=== PATIENT | female | born 2000 ===

== ENCOUNTER 2022-01-14 20:28 | Emergency (ER) | payer OTHER ==
[2022-01-15] MEDS ORDERED: KETOROLAC 30 MG/1 ML INJ IM ONE (03:31)
[2022-01-15] MEDS ORDERED: ONDANSETRON 4 MG ODT TAB PO ONE (03:31)
[2022-01-15] MEDS ORDERED: BUTALB/ACETAMINOPHEN/CAFFEINE TAB PO ONE (03:31)
[2022-01-15 04:26] LABS: Basophils # (Auto) 0.2 K/mm3 (0.0-0.1); Basophils % (Auto) 2.1 % (0.0-1.8); Eosinophils # (Auto) 0.1 K/mm3 (0.0-0.4); Eosinophils % (Auto) 1.2 % (0.0-4.3); Hematocrit 39.8 % (30.3-42.9); Hemoglobin 13.3 gm/dl (10.1-14.3); Lymphocytes # (Auto) 2.3 K/mm3 (1.2-5.4); Lymphocytes % (Auto) 29.2 % (13.4-35.0); Mean Corpuscular HGB Conc 33 % (30-34); Mean Corpuscular Volume 94 fl (79-97); Monocytes # (Auto) 0.6 K/mm3 (0.0-0.8); Monocytes % (Auto) 7.4 % (0.0-7.3); Platelet Count 201 K/mm3 (140-440); Red Blood Count 4.24 M/mm3 (3.65-5.03); Red Cell Distribution Width 14.2 % (13.2-15.2)
[2022-01-15 04:40] LABS: Alanine Aminotransferase 9 units/L (7-56); Albumin 4.4 g/dL (3.9-5); Blood Urea Nitrogen 14 mg/dL (7-17); Calcium 9.5 mg/dL (8.4-10.2); Hemolysis Index 4
[2022-01-15 04:43] LABS: BUN/Creatinine Ratio 28
--- NOTE | 2022-01-15 04:58 | Cat Scan Report ---
CT HEAD WITHOUT CONTRAST INDICATION / CLINICAL INFORMATION: HEADACHE, H/O BRAIN TUMOR. TECHNIQUE: All CT scans at this location are performed using CT dose reduction for ALARA by means of automated exposure control. COMPARISON: None available. FINDINGS: BRAIN PARENCHYMA: No acute intracranial hemorrhage. No evidence of recent infarct. No mass effect or midline shift. Generalized atrophy is greater than expected for the patient's age changes most notabl e along the temporal lobes. VENTRICULAR SYSTEM/EXTRA-AXIAL SPACES: Ventricles are normal for age. No extra-axial fluid collection . ORBITS: Normal as visualized. SKELETAL SYSTEM/SOFT TISSUES: Normal bones and soft tissues. PARANASAL SINUSES/MASTOID AIR CELLS: No significant abnormality. ADDITIONAL FINDINGS: None. IMPRESSION: 1. No acute intracranial abnormality. 2. Additional findings as above. Signer Name: Jhonny Ferreira MD Signed: 01/15/2022 4:54 AM Workstation Name: [id number]
--- NOTE | 2022-01-15 05:14 | Emergency Department Report ---
ED Headache HPI - General Chief Complaint: Headache Stated Complaint: BAD HEADACHE/VOMITING - History of Present Illness Initial Comments: Patient is a nulliparous 21-year-old female with a history of brain tumor as a 10-year-old and which resolved with treatment presents to the ED with complaint of acute onset persistent right temporal headache that radiates to the right parietal scalp for the last 2 days. Patient states that she has been taking ove i-bvw-mfbfacu medications with mild relief. Patient states that in the last 12 hours, the pain has been constant and persistent with nausea and vomiting. Patient denies photophobia, blurry vision, neck pain, chest pain, shortness of breath, nasal and sinus congestion, sore throat, traumatic injury or fall, fever, chills, numbness and tingling or weakness of upper and lower extremities bilaterally. Quality: severe, pressure, sharp Head Injury Location: frontal, temporal Recent Head Trauma: no recent headache/trauma Modifying Factors: improves with: other (h/o benign brain tumor as a child of 10 yo) Associated Symptoms: denies symptoms, nausea/vomiting. denies: confusion, fatigue, facial pain, fever/chills, flushing, loss of consciousness, nasal congestion, nasal drainage, seizures, vision changes, weakness Allergies/Adverse Reactions: Allergies No Known Allergies Allergy (Unverified 01/14/22 21:18) Home Medications: Ambulatory Orders Butalb/Acetamin/Caff 50-325-40 [Fioricet 50-325-40] 1 - 2 tab PO Q6HR PRN #15 tab 01/15/22 Ibuprofen [Motrin] 600 mg PO Q8H PRN #30 tablet 01/15/22 Ondansetron [Zofran Odt] 4 mg PO Q8HR PRN #20 tab.rapdis 01/15/22 ED Review of Systems ROS: Stated complaint: BAD HEADACHE/VOMITING Other details as noted in HPI Constitutional: denies: chills, fever Eyes: denies: eye pain, eye discharge, vision change ENT: denies: ear pain, throat pain Respiratory: denies: cough, shortness of breath, wheezing Cardiovascular: denies: chest pain, palpitations Endocrine: no symptoms reported Gastrointestinal: nausea. denies: abdominal pain, vomiting, diarrhea Genitourinary: denies: urgency, dysuria, discharge Musculoskeletal: denies: back pain, joint swelling, arthralgia Skin: denies: rash, lesions Neurological: headache. 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 child, resolved with chemotherapy - Medications Home Medications: Home Medications Medication Instructions Recorded Confirmed Last Taken Type Butalb/Acetamin/Caff 50-325-40 1 - 2 tab PO Q6HR PRN #15 tab 01/15/22 Unknown Rx [Fioricet 50-325-40] Ibuprofen [Motrin] 600 mg PO Q8H PRN #30 tablet 01/15/22 Unknown Rx Ondansetron [Zofran Odt] 4 mg PO Q8HR PRN #20 tab.rapdis 01/15/22 Unknown Rx ED Physical Exam - General Limitations: No Limitations, Language Barrier General appearance: alert, in no apparent distress - Head Head exam: Present: atraumatic, normocephalic, normal inspection - Eye Eye exam: Present: normal appearance, PERRL, EOMI Pupils: Present: normal accommodation - ENT ENT exam: Present: normal exam, normal orophraynx, mucous membranes moist, TM's normal bilaterally, normal external ear exam - Neck Neck exam: Present: normal inspection, full ROM. Absent: tenderness - Respiratory Respiratory exam: Present: normal lung sounds bilaterally. Absent: respiratory distress, wheezes, rales, rhonchi, stridor, chest wall tenderness, accessory muscle use, decreased breath sounds, prolonged expiratory - Cardiovascular Cardiovascular Exam: Present: regular rate, normal rhythm, normal heart sounds. Absent: systolic murmur, diastolic murmur, rubs, gallop - GI/Abdominal GI/Abdominal exam: Present: soft, normal bowel sounds. Absent: tenderness, guarding, rebound, hyperactive bowel sounds, hypoactive bowel sounds, organomegaly - Extremities Exam Extremities exam: Present: normal inspection, full ROM, normal capillary refill. Absent: tenderness - Back Exam Back exam: Present: normal inspection, full ROM. Absent: tenderness, CVA tenderness (R), CVA tenderness (L), muscle spasm, paraspinal tenderness, vertebral tenderness - Neurological Exam Neurological exam: Present: alert, oriented X3, CN II-XII intact, normal gait, reflexes normal - Psychiatric Psychiatric exam: Present: normal affect, normal mood - Skin Skin exam: Present: warm, dry, intact, normal color. Absent: rash ED Course Vital Signs 01/14/22 21:15 Temperature 98.9 F Pulse Rate 75 Respiratory 18 Rate Blood Pressure 113/59 [Right] O2 Sat by Pulse 98 Oximetry ED Medical Decision Making - Lab Data Result diagrams: 01/15/22 03:42 01/15/22 03:42 - Radiology Data Radiology results: report reviewed, image reviewed [facility] [address] [place] [address] Cat Scan Report Signed Patient: NICKY SETHI MR# : [id number] : 2000 Acct:[id number] Age/Sex: 21 / F ADM Date: 01/14/22 Loc: ED Attending Dr: Ordering Physician: ANITA WETZEL Date of Service: 01/15/22 Procedure(s): CT head/brain wo con Accession Number(s): [id number] cc: ANITA WETZEL CT HEAD WITHOUT CONTRAST INDICATION / CLINICAL INFORMATION: HEADACHE, H/O BRAIN TUMOR. TECHNIQUE: All CT scans at this location are performed using CT dose reduction for ALARA by means of automated exposure control. COMPARISON: None available. FINDINGS: BRAIN PARENCHYMA: No acute intracranial hemorrhage. No evidence of recent infarct. No mass effect or midline shift. Generalized atrophy is greater than expected for the patient's age changes most notable along the temporal lobes. VENTRICULAR SYSTEM/EXTRA-AXIAL SPACES: Ventricles are normal for age. No extra- axial fluid collection. ORBITS: Normal as visualized. SKELETAL SYSTEM/SOFT TISSUES: Normal bones and soft tissues. PARANASAL SINUSES/MASTOID AIR CELLS: No significant abnormality. ADDITIONAL FINDINGS: None. IMPRESSION: 1. No acute intracranial abnormality. 2. Additional findings as above. Signer Name: Jhonny Ferreira MD Signed: 01/15/2022 4:54 AM Workstation Name: [id number] Transcribed By: FRANCES Dictated By: Jhonny Ferreira MD Electronically Authenticated By: Jhonny Ferreira MD Signed Date/Time: 01/15/22453 DD/ 1 TD/TT: - Medical Decision Making This is a nulliparous 21-year-old female with a history of brain tumor as a 10-year-old and which resolved with treatment presents to the ED with complaint of acute onset persistent right temporal headache that radiates to the right parietal scalp for the last 2 days. Patient states that she has been taking [id number]-sarcdxm medications with mild relief. Patient states that in the last 12 hours, the pain has been constant and persistent with nausea and vomiting. P in the ED, patient is alert and oriented x3 and is not in any distress. Patient is hemodynamically stable. Patient was treated for pain in the ED. Lab test results were reviewed and are all nonactionable. Head CT scan without contrast showed no acute intracranial abnormalities or hemorrhage. On reevaluation, patient's headache resolved medication. Patient was discharged home on medications and advised to follow-up with her primary care physician in 7 to 10 days for reevaluation or return to the ED immediately if symptoms get worse. - Differential Diagnosis Tension headache; Brain tumor; Sinus headache; cluster headache; migraine Critical care attestation.: If time is entered above; I have spent that time in minutes in the direct care of this critically ill patient, excluding procedure time. ED Disposition Clinical Impression: Nausea and vomiting in adult Acute tension-type headache Qualifiers: Intractability: not intractable Qualified Code(s): G44.209 - Tension-type headache, unspecified, not intractable Migraine headache without aura Qualifiers: Status migrainosus presence: without status migrainosus Intractability: not intractable Qualified Code(s): G43.009 - Migraine without aura, not intractable, without status migrainosus Disposition: 01 HOME / SELF CARE / HOMELESS Is pt being admited?: No Does the pt Need Aspirin: No Condition: Stable Instructions: Nausea and Vomiting, Adult, Fpvy-go-Vbjy, Tension Headache, Adult, Zavl-sx-Eluz, Migraine Headache, Jxuh-st-Hdte Additional Instructions: All lab test results were reviewed and are all nonactionable. The head CT scan without contrast showed no acute intracranial abnormalities or hemorrhage. No tumors or masses identified. Therefore take medication with food, drink plenty of fluids, follow-up with your primary care physician in 5 to 7 days for reevaluation. Return to the ED immediately if symptoms get worse. Prescriptions: Butalb/Acetamin/Caff 50-325-40 [Fioricet 50-325-40] 1 - 2 tab PO Q6HR PRN #15 tab PRN Reason: Headache Ibuprofen [Motrin] 600 mg PO Q8H PRN #30 tablet PRN Reason: Pain Ondansetron [Zofran Odt] 4 mg PO Q8HR PRN #20 tab.rapdis PRN Reason: Nausea Referrals: KATHRYN CORADO MD [Primary Care Provider] - 7-10 days Forms: Work/School Release Form(ED) Time of Disposition: 05:12 Print Language: CYMRAES
[2022-01-15 05:33] VITALS: BP 128/66
== END 2022-01-15 05:32 | disposition home or self-care (01) ==
LOC: ED 20:28
DX: R11.2 Nausea with vomiting, unspecified (principal); G44.209 Tension-type headache, unspecified, not intractable; G43.009 Migraine without aura, not intractable, without status migrainosus
CPT/HCPCS: 36415; 70450; 80053; 84703; 85025; 96372; 99284; J1885; J3490; Q0162